=== PATIENT | female | born 1970 | race Caucasian/White ===

== ENCOUNTER 2016-09-15 10:44 | Day surgery (SDC) | payer BC ==
[2016-09-12 15:16] VITALS: Ht 165.1 cm; Wt 65.4 kg
[2016-09-15] VITALS (12 sets, daily range): BP systolic 101–122; BP diastolic 51–66; PULSE 52–83; RESP 8–18
[~2016-09-15] VITALS: Ht 165.1 cm; Wt 65.4 kg
[2016-09-15] MEDS ORDERED: ATOR20TA38 PO (11:14)
[2016-09-15] MEDS ORDERED: MIDAZOLAM 1 MG/ML 2 ML INJ ONE ×2 (13:12→13:13)
[2016-09-15] MEDS ORDERED: ROPIVACAINE 0.5 % 30 ML VIAL ONE ×2 (13:12→13:43)
[2016-09-15] MEDS ORDERED: FENTAnyl 50 MCG/ML VIAL ONE (13:13)
[2016-09-15] MEDS ORDERED: SUCCINYLCHOLINE CHLORIDE 100 MG/5 ML SYG IV ONE (14:53)
[2016-09-15] MEDS ORDERED: ROCURONIUM 50 MG INJ ONE (14:53)
[2016-09-15] MEDS ORDERED: PROPOFOL 20 ML ONE (14:53)
[2016-09-15] MEDS ORDERED: LIDOCAINE 2% (SDV) 5 ML INJ ONE (14:53)
[2016-09-15] MEDS ORDERED: DEXAMETHASONE 4 MG/ML 1 ML INJ ONE (14:54)
[2016-09-15] MEDS ORDERED: METOCLOPRAMIDE 10 MG INJ ONE (14:54)
[2016-09-15] MEDS ORDERED: FAMOTIDINE 20 MG INJ ONE (14:54)
[2016-09-15] MEDS ORDERED: ONDANSETRON 4 MG INJ ONE (14:54)
[2016-09-15] MEDS ORDERED: NEOSTIGMINE 3 MG/3 ML SYRINGE ONE (15:59)
[2016-09-15] MEDS ORDERED: GLYCOPYRROLATE 0.4 MG INJ ONE (15:59)
[2016-09-15] MEDS ORDERED: HYDROmorphONE 2 MG/ML SYG ONE (16:01)
[2016-09-15] MEDS ORDERED: HYDROmorphONE (0.2 MG/ML) 10ML SYG IV ONE (16:47)
--- NOTE | 2016-09-15 16:48 | HPN ---
Date/Time of Note Date/Time of Note DATE: 09/15/16 TIME: 12:47 Interval H&P Admission Note Pt. seen H&P reviewed: No system changes Discussed with patient the risks and benefits of the procedure which includes left second toe metatarsal phalangeal joint arthroscopy with debridement and microfracture as well as possible plantar plate repair and second metatarsal Enoch shortening osteotomy. Patient would also like to proceed with a fluoroscopic guided right second metatarsal phalangeal joint PRP injection. Patient understands the risks and benefits and like to proceed with surgery DANDRE WILKINS MD September 15, 2016 16:48
[2016-09-15] MEDS: HYDROmorphONE (0.2 MG/ML) 10ML SYG IV PRN ×2 (16:52→17:00)
--- NOTE | 2016-09-15 16:56 | OPR ---
Date/Time of Note Date/Time of Note DATE: 09/15/16 TIME: 16:49 Operative Report Procedure Date: September 15, 2016 Preoperative Diagnosis 1. Left second toe metatarsal head osteochondral defect 2. left second toe metatarsal phalangeal joint synovitis 3. right second toe plantar plate partial tear Postoperative Diagnosis 1. Left second toe metatarsal head osteochondral defect, 4 x 4 mm 2. left second toe metatarsal phalangeal joint synovitis 3. right second toe plantar plate partial tear 4. 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 left second metatarsophalangeal joint arthroscopy with extensive debridement 2. Left second metatarsal phalangeal joint arthroscopy with excision of osteochondral lesion and microfracture of the second metatarsal head 3. left second metatarsal phalangeal joint arthroscopy and chondroplasty of the base of the proximal phalanx 4. Application and injection of platelet rich plasma (2% hematocrit, Arthrex Vitaliy system) to the left second metatarsophalangeal joint 5. Fluoroscopic guided injection of platelet rich plasma (7% hematocrit, Arthrex Vitaliy system) to the right second metatarsophalangeal joint Surgeon: DANDRE WILKINS MD family medicine physician assistant: MOE WILKINS MD Anesthesia: general, other (popliteal block) Anesthesiologist: TESSIE FRANK MD Tourniquet Time: 75 min at 250 mm HG Estimated Blood Loss: minimal Complications: None Pt Condition Post Procedure: stable Disposition: PACU DANDRE WILKINS MD September 15, 2016 16:56
[2016-09-15] MEDS ORDERED: OXYCODONE/ACETAMINOPHEN (5/325) TAB PO PRN ×2 (17:00)
[2016-09-15] MEDS ORDERED: morphine 2 MG INJ IV PRN (17:00)
[2016-09-15] MEDS ORDERED: ONDANSETRON 4 MG INJ IV PRN (17:00)
[2016-09-15] MEDS ORDERED: DIPHENHYDRAMINE 50 MG INJ IV PRN (17:00)
[2016-09-15] MEDS ORDERED: PROCHLORPERAZINE 10 MG INJ IV PRN (17:00)
[2016-09-15] MEDS ORDERED: MEPERIDINE 25 MG INJ IV PRN (17:00)
[2016-09-15] MEDS ORDERED: FENTAnyl 50 MCG/ML VIAL IV PRN (17:00)
[2016-09-15] MEDS ORDERED: morphine 10 MG INJ IV PRN (17:00)
--- NOTE | 2016-09-15 17:07 | QN ---
Documentation Job number: [id number] DANDRE WILKINS MD September 15, 2016 17:07
--- NOTE | 2016-09-15 22:02 | OPR ---
DATE OF OPERATION: 09/15/2016 PREOPERATIVE DIAGNOSES: 1. Left second toe metatarsal head osteochondral defect. 2. Left second toe metatarsophalangeal joint synovitis. 3. Right second toe partial plantar plate tear. POSTOPERATIVE DIAGNOSES: 1. Left second toe metatarsal head osteochondral defect, 4 x 4 mm. 2. Left second toe metatarsophalangeal joint synovitis. 3. 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 4. Right second toe plantar plate partial tear. OPERATION PERFORMED 1. Left second metatarsophalangeal joint arthroscopy with extensive debridement. 2. Left second metatarsophalangeal joint arthroscopy with excision of osteochondral lesion and microfracture of the second metatarsal head. 3. Left second metatarsophalangeal joint arthroscopy with chondroplasty of the base of the proximal phalanx. 4. Application and injection of platelet rich plasma (2% hematocrit, Arthrex Vitaliy system) to the left second metatarsophalangeal joint. 5. Fluoroscopic guided injection of platelet rich plasma (7% hematocrit, Arthrex Vitaliy system) to the right second metatarsophalangeal joint. SURGEON: Dandre Velazquez MD RESTAURANT LINE COOK: Jeison Velazquez MD ANESTHESIA: General with popliteal block. ANESTHESIOLOGIST: Ana Garcias TOURNIQUET TIME: 75 minutes at 250 mmHg. ESTIMATED BLOOD LOSS: Minimal. COMPLICATIONS: None. DISPOSITION AND CONDITION: PACU is stable. 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 MRI shows an osteochondral defect of the left second metatarsal head as well as a partial tear of the plantar plate of the left second metatarsophalangeal joint. Given the patient is having excruciating pain with ambulation on the left side, elected to proceed with surgery on the left side at this time. However, we will perform a PRP injection to the right second metatarsophalangeal joint today with the plan for it to begin healing as well. RISK NOTE: The patient was explained the risks and benefits of surgery in the patient's [place] language including, but not limited to infection, bleeding, loss of limb, loss of life, need for future surgery, risk of injury to blood vessels, nerves, ligaments, and risk for future surgery, risk of arthritis, risk of anesthesia, risk of DVT. The patient acknowledges these risks by signing the surgical consent form. DESCRIPTION OF PROCEDURE: The patient was met in the preoperative holding area. Correct operative extremity was marked and confirmed with both patient and with consent on the left side. The patient was then brought back to the operative theater, given preoperative regional block anesthesia, and preoperative antibiotics of 1 gram of Ancef. The patient was then placed supine on the operative table, prepped and draped in the normal sterile fashion. A timeout was taken and all parties in the room agreed it was correct patient, correct extremity, correct procedure. This patient's second toe was then Esmarched and then second toe was wrapped with Coban and placed into a Turkmen finger traps, which was then held by an arthroscopic shoulder cary and held with 7 pounds of force through the arthroscopic shoulder cary. A 22-gauge needle was initially placed into the dorsal medial portal and approximately 2 mL of fluid was injected into the second metatarsophalangeal joint and confirmed the joint was entered with a second 22-gauge needle placed into the dorsal lateral portal. Incisions were then made and the scope was then entered in the typical fashion via both the dorsal medial and dorsal lateral portal with slow flow being placed through a syringe into the arthroscope. The joint was entered and extensive synovitis was seen in both the medial and lateral gutter, as well as a loose body found and the dorsal lateral gutter. A 4 x 4 mm osteochondral lesion was found in the mid portion of the second metatarsal head with the medial rim beginning to flip up that had loose attachments to the metatarsal head. This osteochondral defect was then curetted with a Mellissa curette to create a firm straight border of the second metatarsal head lesion. Once the firm border was created and the rim was stabilized using a 0.035 Marquez wire, approximately 4 to 5 drill holes were made into the metatarsal head lesion to create a microfracture hole to allow for stem cells to elucidate, and created a fibrocartilaginous healed area. The remainder of the synovitis was extensively debrided both medial and lateral and plantar aspects of the toe. Attention was then turned to the base of the proximal phalanx were approximately grade II chondromalacia was found, which was also debrided to avoid any loose debris breaking off at this site. The remainder of the debris was again debrided and shaved out and the lesion was then measured again, measured approximately 4 x 4 mm in length and width. After thorough debridement, the scope and shaver were removed and a 22-gauge needle was placed prior to the scope being removed under visualization into the second metatarsophalangeal joint. The portals were closed with 5-0 nylon in vertical mattress fashion and then 3 mL of platelet rich plasma having spun at 2 % hematocrit was then injected into the joint. The wounds were then dressed with 4 x 4's and fluffs and Kerlix that was soaked in platelet-poor plasma and then wrapped in a bias and placed into a short Cam walker boot. All drapes were then taken down and the right foot was then prepped in normal sterile fashion with chloraprep and, under fluoroscopic guidance, the right second metatarsophalangeal joint was entered and confirmed on both AP and lateral views of the fluoroscopy. At that point, 3 mL of 7% hematocrit platelet rich plasma was then injected into the second metatarsophalangeal joint under fluoroscopic guidance. This wound was then dressed with a Band- Aid. The patient was awakened and taken to PACU in stable condition. Tourniquet time during the case was approximately 75 minutes. The patient was taken to PACU in a stable condition. OPERATOR SUPPLY NOTE: During the operation, the use of an orthopedic surgical services asst was medically indicated and necessary in order for distraction, rotation of the foot, as well as to hold the foot in the correct position during the procedure given this was a very technically challenging case and a very small area. It was also necessary to help maneuver the arthroscope while the surgeon did the procedure as well. The healthcare administrative assistant was essential in helping to maintain the proper position in order to carry out the operation safely and efficiently as well as assistance in maneuvering the arthroscope into very small crevices of the second metatarsophalangeal joint. Without a qualified orthopedic surgical services asst being present, the case would extensively more difficult and complex, and likely taking a lot longer to perform. Thus, the orthopedic surgical services asst should be compensated accordingly. Dictated By: DANDRE BIRMINGHAM/NAFISA Conf#: [id number] DID#: [id number] MARI
--- NOTE | 2016-09-16 13:57 | RADRPT ---
PROCEDURE: Intraoperative imaging of the left foot with fluoroscopy. CLINICAL INDICATION: Left foot pain. Intraoperative. TECHNIQUE: 7 images of the left foot were obtained in the operating room with an image intensifier . No radiologist was in attendance. COMPARISON: No prior study is available for comparison. FINDINGS: Images demonstrate placement of a pin in the distal second metatarsal. IMPRESSION: 1. Intraoperative imaging of the left foot. RPTAT: QQ .Romero Godinez MD, MD Date Time Electronically viewed and signed by .Romero Godinez MD, on 09/16/2016 13:56 .R/
== END 2016-09-15 18:20 | disposition home or self-care (01) ==
LOC: SDS 10:44
PROVIDERS: ATTEND Orthopaedic Surgery
DX: M24.175 Other articular cartilage disorders, left foot (principal); M65.872 Other synovitis and tenosynovitis, left ankle and foot; M94.272 Chondromalacia, left ankle and joints of left foot; E78.5 Hyperlipidemia, unspecified
CPT/HCPCS: 29999; 73630; J0330; J1100; J1170; J2250; J2405; J2710; J2765; J2795; J3010